=== PATIENT | female | born 1985 | race Caucasian/White ===

== ENCOUNTER 2019-08-16 18:17 | Observation (INO) | payer OTHER ==
[~2019-08-16] VITALS: Ht 182.9 cm; Wt 71.8 kg
[2019-08-16 18:38] VITALS: BP 119/69
[2019-08-16 18:52] LABS: ALANINE AMINOTRANSFERASE 59 U/L (12-78); ALBUMIN 2.3 g/dL (3.4-5.0); ANION GAP 8 mmol/L (5-15); CALCIUM 8.4 mg/dL (8.5-10.1); CHLORIDE 103 mmol/L (98-107); CREATININE 0.56 mg/dL (0.55-1.02)
[2019-08-16 18:54] LABS: ALKALINE PHOSPHATASE 147 U/L (45-117); BILIRUBIN,TOTAL 0.4 mg/dL (0.2-1.0); TOTAL PROTEIN 5.5 g/dL (6.4-8.2)
[2019-08-16 19:20] LABS: MEAN CORPUSCULAR HEMOGLOBIN 33.6 pg (27.0-34.8); MEAN CORPUSCULAR HGB CONC 34.8 g/dL (32.4-35.8); MEAN CORPUSCULAR VOLUME 96.6 fL (80-100); RED BLOOD COUNT 3.94 x10^6/uL (3.82-5.3); RED CELL DISTRIBUTION WIDTH 11.4 % (9.6-15.2)
[2019-08-16 19:21] LABS: MEAN PLATELET VOLUME 11.1 fL (7.4-10.4)
[2019-08-16 19:23] LABS: PLATELET COUNT 119 x10^3/uL (130-400)
[2019-08-16 19:26] LABS: BASOPHILS % (AUTO) 0 % (0-1); EOSINOPHILS # (AUTO) 0.01 x10^3/uL (0-0.4); EOSINOPHILS % (AUTO) 0 % (1-7); LYMPHOCYTES # (AUTO) 0.89 x10^3/uL (1-3.4); LYMPHOCYTES % (AUTO) 15 % (22-44); MD SCAN; MONOCYTES # (AUTO) 0.51 x10^3/uL (0.2-0.8); MONOCYTES % (AUTO) 9 % (2-9); NEUTROPHILS # (AUTO) 4.59 x10^3/uL (1.8-6.8); NEUTROPHILS % (AUTO) 77 % (42-75)
[2019-08-16] MEDS ORDERED: BETAMETHASONE 6 MG/ML, 5ML IM ONE (19:52)
[2019-08-16] MEDS: BETAMETHASONE 6 MG/ML, 5ML IM SCH (19:57)
[2019-08-17 07:02] LABS: ALANINE AMINOTRANSFERASE 52 U/L (12-78); ALBUMIN 2.1 g/dL (3.4-5.0); ANION GAP 8 mmol/L (5-15); BILIRUBIN, DIRECT 0.1 mg/dL (0.1-0.2); CALCIUM 8.2 mg/dL (8.5-10.1); CHLORIDE 105 mmol/L (98-107); CREATININE 0.51 mg/dL (0.55-1.02)
[2019-08-17 07:04] LABS: ALKALINE PHOSPHATASE 146 U/L (45-117); BILIRUBIN,TOTAL 0.3 mg/dL (0.2-1.0); MEAN CORPUSCULAR HEMOGLOBIN 33.1 pg (27.0-34.8); MEAN CORPUSCULAR HGB CONC 34.2 g/dL (32.4-35.8); MEAN CORPUSCULAR VOLUME 96.8 fL (80-100); RED BLOOD COUNT 3.92 x10^6/uL (3.82-5.3); RED CELL DISTRIBUTION WIDTH 11.5 % (9.6-15.2); TOTAL PROTEIN 5.3 g/dL (6.4-8.2)
[2019-08-17 08:19] LABS: PLATELET COUNT 90 x10^3/uL (130-400)
[2019-08-17 08:20] LABS: BASOPHILS % (AUTO) 0 % (0-1); EOSINOPHILS % (AUTO) 0 % (1-7); LYMPHOCYTES # (AUTO) 0.41 x10^3/uL (1-3.4); LYMPHOCYTES % (AUTO) 6 % (22-44); MD SCAN; MONOCYTES # (AUTO) 0.06 x10^3/uL (0.2-0.8); MONOCYTES % (AUTO) 1 % (2-9); NEUTROPHILS # (AUTO) 6.64 x10^3/uL (1.8-6.8); NEUTROPHILS % (AUTO) 93 % (42-75)
[2019-08-17 12:33] LABS: ALANINE AMINOTRANSFERASE 52 U/L (12-78); ALBUMIN 2.1 g/dL (3.4-5.0); ANION GAP 10 mmol/L (5-15); CALCIUM 8.2 mg/dL (8.5-10.1); CHLORIDE 104 mmol/L (98-107); CREATININE 0.54 mg/dL (0.55-1.02)
[2019-08-17 12:35] LABS: ALKALINE PHOSPHATASE 140 U/L (45-117); BILIRUBIN,TOTAL 0.3 mg/dL (0.2-1.0); TOTAL PROTEIN 5.3 g/dL (6.4-8.2)
[2019-08-17 12:37] LABS: BILIRUBIN, DIRECT < 0.1 mg/dL (0.1-0.2)
[2019-08-17 13:37] LABS: BASOPHILS % (AUTO) 0 % (0-1); EOSINOPHILS % (AUTO) 0 % (1-7); LYMPHOCYTES # (AUTO) 0.49 x10^3/uL (1-3.4); LYMPHOCYTES % (AUTO) 6 % (22-44); MD SCAN; MEAN CORPUSCULAR HEMOGLOBIN 33.7 pg (27.0-34.8); MEAN CORPUSCULAR HGB CONC 34.5 g/dL (32.4-35.8); MEAN CORPUSCULAR VOLUME 97.5 fL (80-100); MEAN PLATELET VOLUME 10.7 fL (7.4-10.4); MONOCYTES # (AUTO) 0.26 x10^3/uL (0.2-0.8); MONOCYTES % (AUTO) 3 % (2-9); NEUTROPHILS # (AUTO) 7.46 x10^3/uL (1.8-6.8); NEUTROPHILS % (AUTO) 91 % (42-75); PLATELET COUNT 88 x10^3/uL (130-400); RED BLOOD COUNT 3.86 x10^6/uL (3.82-5.3); RED CELL DISTRIBUTION WIDTH 11.6 % (9.6-15.2)
[2019-08-17] MEDS: BETAMETHASONE 6 MG/ML, 5ML IM SCH (18:30)
== END 2019-08-17 19:00 | disposition home or self-care (01) ==
LOC: LDOP 18:17 → 2NE 20:00
PROVIDERS: ADMIT Obstetrics & Gynecology; ATTEND Obstetrics & Gynecology
DX: O99.113 Other diseases of the blood and blood-forming organs and certain disorders involving the immune mechanism complicating pregnancy, third trimester (principal); D69.59 Other secondary thrombocytopenia; O14.23 HELLP syndrome (HELLP), third trimester; O99.283 Endocrine, nutritional and metabolic diseases complicating pregnancy, third trimester; O99.343 Other mental disorders complicating pregnancy, third trimester; E03.9 Hypothyroidism, unspecified; D69.3 Immune thrombocytopenic purpura; F42.9 Obsessive-compulsive disorder, unspecified; Z3A.31 31 weeks gestation of pregnancy
CPT/HCPCS: 36415; 59025; 76819; 80053; 82248; 82570; 84156; 84550; 85025; 96372; 99201; G0378; J0702; G0463

== ENCOUNTER 2019-08-31 23:21 | Outpatient (CLI) | payer OTHER ==
[~2019-08-31] VITALS: Ht 182.9 cm; Wt 71.7 kg
[2019-08-31 23:41] VITALS: BP 134/82
[2019-09-01 00:01] LABS: MICROSCOPIC INDICATED
[2019-09-01 00:41] LABS: ALANINE AMINOTRANSFERASE 29 U/L (12-78); ALBUMIN 2.3 g/dL (3.4-5.0); ANION GAP 8 mmol/L (5-15); BILIRUBIN, DIRECT 0.1 mg/dL (0.1-0.2); CALCIUM 8.3 mg/dL (8.5-10.1); CHLORIDE 106 mmol/L (98-107); CREATININE 0.56 mg/dL (0.55-1.02)
[2019-09-01 00:43] LABS: ALKALINE PHOSPHATASE 166 U/L (45-117); BILIRUBIN,TOTAL 0.2 mg/dL (0.2-1.0); TOTAL PROTEIN 5.8 g/dL (6.4-8.2)
[2019-09-01 01:07] LABS: BASOPHILS % (AUTO) 0 % (0-1); EOSINOPHILS # (AUTO) 0.02 x10^3/uL (0-0.4); EOSINOPHILS % (AUTO) 0 % (1-7); LYMPHOCYTES # (AUTO) 0.91 x10^3/uL (1-3.4); LYMPHOCYTES % (AUTO) 11 % (22-44); MD SCAN; MEAN CORPUSCULAR HEMOGLOBIN 33.5 pg (27.0-34.8); MEAN CORPUSCULAR HGB CONC 34.5 g/dL (32.4-35.8); MEAN CORPUSCULAR VOLUME 97.1 fL (80-100); MEAN PLATELET VOLUME 13.3 fL (7.4-10.4); MONOCYTES # (AUTO) 0.84 x10^3/uL (0.2-0.8); MONOCYTES % (AUTO) 10 % (2-9); NEUTROPHILS # (AUTO) 6.75 x10^3/uL (1.8-6.8); NEUTROPHILS % (AUTO) 79 % (42-75); PLATELET COUNT 110 x10^3/uL (130-400); RED CELL DISTRIBUTION WIDTH 11.8 % (9.6-15.2)
== END 2019-09-01 01:21 | disposition home or self-care (01) ==
LOC: LDOP 23:21
PROVIDERS: ATTEND Obstetrics & Gynecology
DX: O26.893 Other specified pregnancy related conditions, third trimester (principal); R10.9 Unspecified abdominal pain; Z3A.35 35 weeks gestation of pregnancy
CPT/HCPCS: 36415; 59025; 80053; 81001; 82248; 82570; 84156; 84550; 85025; 87086; 99211; G0463

== ENCOUNTER 2019-09-09 06:55 | Inpatient (IN) | payer OTHER ==
[~2019-09-09] VITALS: Ht 182.9 cm; Wt 70.0 kg
[2019-09-09 07:15] VITALS: BP 116/68
[2019-09-09] MEDS ORDERED: LACTATED RINGERS 1,000 ML IV SCH ×2 (07:25→10:24)
[2019-09-09] MEDS ORDERED: SODIUM CITRATE/CITRIC ACID 30 ML UDC PO ONE (07:30)
[2019-09-09] MEDS ORDERED: LACTATED RINGERS 1,000 ML IVBOLUS ONE (07:30)
[2019-09-09] MEDS ORDERED: METOCLOPRAMIDE 5 MG/ML, 2ML IV ONE (07:30)
[2019-09-09] MEDS ORDERED: EPINEPHRINE 1 MG/ML, 1ML ONE (07:41)
[2019-09-09] MEDS ORDERED: morphine SULFATE/PF 0.5 MG/ML, 10ML ONE (07:41)
[2019-09-09] MEDS ORDERED: METOCLOPRAMIDE 5 MG/ML, 2ML ONE (07:55)
[2019-09-09] MEDS ORDERED: NEWBORN KIT ONE (07:55)
[2019-09-09] MEDS ORDERED: SODIUM CITRATE/CITRIC ACID 30 ML UDC ONE (07:56)
[2019-09-09] MEDS ORDERED: OXYTOCIN 30U/ 0.9% NaCL 500ML 500 ML ONE (07:56)
[2019-09-09 08:24] LABS: ALANINE AMINOTRANSFERASE 27 U/L (12-78); ALBUMIN 2.4 g/dL (3.4-5.0); ANION GAP 8 mmol/L (5-15); CALCIUM 8.3 mg/dL (8.5-10.1); CHLORIDE 107 mmol/L (98-107); CREATININE 0.67 mg/dL (0.55-1.02)
[2019-09-09 08:27] LABS: ALKALINE PHOSPHATASE 179 U/L (45-117); BILIRUBIN,TOTAL 0.3 mg/dL (0.2-1.0); TOTAL PROTEIN 5.3 g/dL (6.4-8.2)
[2019-09-09 08:41] LABS: MEAN CORPUSCULAR HEMOGLOBIN 33.2 pg (27.0-34.8); MEAN CORPUSCULAR VOLUME 97.6 fL (80-100); MEAN PLATELET VOLUME 10.7 fL (7.4-10.4); PLATELET COUNT 91 x10^3/uL (130-400); RED BLOOD COUNT 4.14 x10^6/uL (3.82-5.3); RED CELL DISTRIBUTION WIDTH 11.9 % (9.6-15.2)
[2019-09-09 08:42] LABS: MD YES
[2019-09-09 08:48] LABS: BASOS#(MANUAL) 0.12 x10^3/uL (0-0.1); BASOS% (MANUAL) 2 % (0-1); LYMPH#(MANUAL) 0.87 x10^3/uL (1-3.4); LYMPHS% (MANUAL) 14 % (22-44); MONOS#(MANUAL) 0.12 x10^3/uL (0.3-2.7); MONOS% (MANUAL) 2 % (2-9); SEG#(MANUAL) 5.08 x10^3/uL (1.8-6.8); SEGS% (MANUAL) 82 % (42-75)
[2019-09-09 08:49] LABS: <PLATELET ESTIMATE> DECREASED; <RBC MORPHOLOGY> NORMAL; LARGE PLATELETS 1+
[2019-09-09 08:50] LABS: GIANT PLATELETS 2+
[2019-09-09] MEDS ORDERED: MEPERIDINE/PF 50 MG/ML IVPush PRN (10:30)
[2019-09-09] MEDS ORDERED: ONDANSETRON 2MG/ML, 2ML IV PRN (10:30)
[2019-09-09] MEDS ORDERED: MISOPROSTOL 200 MCG TABLET PR PRN (10:30)
[2019-09-09] MEDS ORDERED: GLYCERIN ADULT SUPP PR PRN (10:30)
[2019-09-09] MEDS ORDERED: DIPHENHYDRAMINE 50 MG/ML, 1ML IV PRN (11:00)
[2019-09-09] MEDS ORDERED: HYDROmorphone 1 MG/ML, 1ML INJ IVPush PRN (11:00)
[2019-09-09] MEDS: LACTATED RINGERS 1,000 ML IV SCH ×2 (11:00→20:24)
[2019-09-09] MEDS ORDERED: NALOXONE 0.4 MG/ML, 1ML IV PRN (11:00)
[2019-09-09] MEDS ORDERED: OXYcodone/APAP 5/325MG TABLET PO PRN (11:00)
[2019-09-09] MEDS ORDERED: ONDANSETRON 2MG/ML, 2ML IVPush PRN (11:00)
[2019-09-09] MEDS: OXYTOCIN 30U/ 0.9% NaCL 500ML 500 ML IV SCH ×2 (11:02→20:24)
[2019-09-09 13:30] VITALS: BP 106/64
[2019-09-09 18:12] LABS: <PLATELET ESTIMATE> DECREASED; <RBC MORPHOLOGY> NORMAL; BASOPHILS # (AUTO) 0.02 x10^3/uL (0-0.1); BASOPHILS % (AUTO) 0 % (0-1); EOSINOPHILS # (AUTO) 0.07 x10^3/uL (0-0.4); EOSINOPHILS % (AUTO) 1 % (1-7); GIANT PLATELETS 1+; LARGE PLATELETS 2+; LYMPHOCYTES # (AUTO) 0.77 x10^3/uL (1-3.4); LYMPHOCYTES % (AUTO) 10 % (22-44); MD MORPH REVIEW ONLY; MEAN CORPUSCULAR HEMOGLOBIN 33.2 pg (27.0-34.8); MEAN CORPUSCULAR HGB CONC 34.6 g/dL (32.4-35.8); MEAN CORPUSCULAR VOLUME 95.9 fL (80-100); MEAN PLATELET VOLUME 10.9 fL (7.4-10.4); MONOCYTES % (AUTO) 10 % (2-9); NEUTROPHILS # (AUTO) 6.37 x10^3/uL (1.8-6.8); NEUTROPHILS % (AUTO) 79 % (42-75); PLATELET COUNT 80 x10^3/uL (130-400); RED BLOOD COUNT 3.96 x10^6/uL (3.82-5.3); RED CELL DISTRIBUTION WIDTH 11.8 % (9.6-15.2)
[2019-09-09] MEDS: OXYcodone IR 5MG TABLET PO PRN ×2 (18:33→22:49)
[2019-09-09] MEDS: SIMETHICONE 80 MG CHEW TAB PO PRN (18:33)
[2019-09-09] MEDS: ACETAMINOPHEN 325 MG TABLET PO PRN ×2 (18:33→22:48)
[2019-09-09 19:30] VITALS: BP 109/62
[2019-09-09] MEDS ORDERED: FLUVOXAMINE 100MG TABLET HOMEMEDPO SCH (21:00)
[2019-09-09] MEDS: FLUVOXAMINE 100MG TABLET HOMEMEDPO SCH (21:00)
[2019-09-10 01:30] VITALS: BP 110/68
[2019-09-10] MEDS: ACETAMINOPHEN 325 MG TABLET PO PRN ×5 (02:43→23:52)
[2019-09-10] MEDS: OXYcodone IR 5MG TABLET PO PRN ×5 (02:44→23:52)
[2019-09-10 05:30] VITALS: BP 117/72
[2019-09-10] MEDS: LACTATED RINGERS 1,000 ML IV SCH ×2 (06:24→16:24)
[2019-09-10] MEDS: OXYTOCIN 30U/ 0.9% NaCL 500ML 500 ML IV SCH ×2 (06:24→16:24)
[2019-09-10 07:45] VITALS: BP 121/76
[2019-09-10] MEDS: PRENATAL VIT/IRON/FA 1 EACH TABLET PO SCH (09:01)
[2019-09-10] MEDS: BUPROPION 100 MG TABLET HOMEMEDPO SCH (09:01)
[2019-09-10] MEDS: SIMETHICONE 80 MG CHEW TAB PO PRN ×2 (17:29→23:51)
[2019-09-10] MEDS ORDERED: ONDANSETRON ODT 4 MG PO PRN (17:30)
[2019-09-10] MEDS: DOCUSATE 100 MG CAPSULE PO PRN (19:33)
[2019-09-10 19:45] VITALS: BP 117/70
[2019-09-10] MEDS: FLUVOXAMINE 100MG TABLET HOMEMEDPO SCH (21:00)
[2019-09-11] MEDS: OXYTOCIN 30U/ 0.9% NaCL 500ML 500 ML IV SCH (02:24)
[2019-09-11] MEDS: LACTATED RINGERS 1,000 ML IV SCH (02:24)
[2019-09-11] MEDS: ACETAMINOPHEN 325 MG TABLET PO PRN ×2 (04:18→08:14)
[2019-09-11] MEDS: OXYcodone IR 5MG TABLET PO PRN ×3 (04:18→12:12)
[2019-09-11 07:55] VITALS: BP 113/70
[2019-09-11] MEDS: SIMETHICONE 80 MG CHEW TAB PO PRN (08:14)
[2019-09-11] MEDS: PRENATAL VIT/IRON/FA 1 EACH TABLET PO SCH (08:14)
[2019-09-11] MEDS: DOCUSATE 100 MG CAPSULE PO PRN (08:14)
[2019-09-11] MEDS: BUPROPION 100 MG TABLET HOMEMEDPO SCH (08:20)
[2019-09-11] MEDS ORDERED: IBUP-1222 PO (11:04)
[2019-09-11] MEDS ORDERED: OXYC5CAP2 PO (11:05)
[2019-09-11] MEDS ORDERED: PREN1TAB60 PO (11:10)
== END 2019-09-11 13:13 | disposition home or self-care (01) | DRG 787 ==
LOC: LDIP 07:10 → 2NW 13:06
PROVIDERS: ADMIT Obstetrics & Gynecology; ATTEND Obstetrics & Gynecology
PROC: 10D00Z1 Extraction of Products of Conception, Low, Open Approach (ICD-10-PCS; principal; 2019-09-09)
DX: O77.0 Labor and delivery complicated by meconium in amniotic fluid (principal); O99.12 Other diseases of the blood and blood-forming organs and certain disorders involving the immune mechanism complicating childbirth; O99.824 Streptococcus B carrier state complicating childbirth; D69.6 Thrombocytopenia, unspecified; O99.284 Endocrine, nutritional and metabolic diseases complicating childbirth; E03.9 Hypothyroidism, unspecified; O69.81X0 Labor and delivery complicated by cord around neck, without compression, not applicable or unspecified; O99.344 Other mental disorders complicating childbirth; F41.9 Anxiety disorder, unspecified; F42.9 Obsessive-compulsive disorder, unspecified; Z37.0 Single live birth; Z3A.37 37 weeks gestation of pregnancy; Z86.59 Personal history of other mental and behavioral disorders
CPT/HCPCS: 36415; 80053; 85025; 86592; 86762; 86850; 86900; G0378; J0171; J2274; Q0162; J2590; J2765; J7120